=== PATIENT | female | born 1960 | race Caucasian/White ===

== ENCOUNTER 2019-07-10 10:56 | Outpatient (CLI) | payer OTHER, SELFPAY ==
--- NOTE | 2019-07-10 11:04 | XRR_ITS ---
PROCEDURE INFORMATION: Exam: XR Lumbosacral Spine, 2 or 3 Views Exam date and time: 07/10/2019 11:04 AM Age: 59 years old Clinical indication: Lumbago TECHNIQUE: Imaging protocol: XR of the lumbosacral spine, 2 or 3 views. COMPARISON: No relevant prior studies available. FINDINGS: Vertebrae: Normal. No acute fracture. Seen with narrowing of the intervertebral disc space and bone spurs at multiple levels. There is a mild retrolisthesis L2-L3 Soft tissues: Normal. XR/XR lumbar spine 2-3V* [id number] IMPRESSION: Negative for acute bony normality. Mild osteoarthritis Retrolisthesis L2-L3
== END 2019-07-10 10:57 | disposition home or self-care (01) ==
LOC: WPI 10:59
PROVIDERS: Family Provider Internal Medicine; PCP Internal Medicine; Referring Provider Nurse Practitioner Family; Visit Provider Nurse Practitioner Family
DX: M47.896 Other spondylosis, lumbar region (principal); M54.5 Low back pain
CPT/HCPCS: 72100

== ENCOUNTER → 2020-04-09 11:14 | Outpatient (BNVA) | payer OTHER, SELFPAY | PROVIDERS: Family Provider Internal Medicine; PCP Internal Medicine; Visit Provider Internal Medicine | DX: M25.511 Pain in right shoulder (principal); M19.011 Primary osteoarthritis, right shoulder | CPT/HCPCS: 73030 ==

== ENCOUNTER 2020-07-16 11:48 | Outpatient (CLI) | payer OTHER, SELFPAY ==
[2020-07-16 12:01] VITALS: BP 150/87; PULSE 97; RESP 18; O2SAT 98; BMI 42.5
[2020-07-16 12:12] VITALS: TEMP 36.9
--- NOTE | 2020-07-16 12:43 | AMB.MCA ---
Patient Information Symptom onset date: 07/11/20 COVID 19 common symptoms: positive cough, non-productive cough, productive cough, fatigue, body aches and nasal congestion COVID 19 other sytmptoms: negative chest pressure, chest pain, pleuritic pain, requiring oxygen, requiring more oxygen, respiratory distress, cyanosis, lethargy, confusion, new neurological complaints or other concerning symptoms Treatment prior to arrival: none [facility] COVID test results: No Data to Display outside results available, scanned () Criteria/Plan Inclusion/Exclusion Criteria weight >/= 40kg, + direct test </= 10 days ago and symptom onset </= 10 days ago age >/= 55 and has hypertension, age >/= 55 and has diabetes and age >/= 55 and has COPD/lung diease not requiring hospitalization, not requiring oxygen (if not chronically on oxygen) and no increase oxygen requirement (if chronically on oxygen) Patient education patient/caregiver received/reviewed fact sheet, Emergency Use Authorization/unapproved drug status discussed with patient/caregiver, alternatives to this treatment discussed with patient/caregiver, risks and benefits of medication reviewed with patient/caregiver, patient/caregiver given opportunity for questions, which were answered and patient/caregiver consents to receiving Monoclonal Antibody Treatment Plan for treatment Meets criteria for Monoclonal Antibody infusion
[2020-07-16 13:29] VITALS: BP 117/96; PULSE 83; RESP 16; O2SAT 97
[2020-07-16 14:13] VITALS: BP 149/77; PULSE 80; RESP 14; O2SAT 99
[2020-07-16 14:56] VITALS: BP 107/89; PULSE 76; RESP 16; O2SAT 98
[2020-07-16 15:06] VITALS: BP 107/89; PULSE 76; RESP 16
--- NOTE | 2020-07-19 14:27 | DCPLANNER ---
Addendum entered by Aubrie Roa 07/30/20 12:40: research and development manager called to check on patient after getting the BAM infusion. Patient stated that she is doing really good. Glad she got infusion, not been admitted to hospital anywhere. Original Note: research and development manager had message that patient received the BAM infusion. research and development manager called to check on patient after she received the BAM infusion. Patient stated that she is feeling good and that the infusion worked great. Before the infusion she stated that she had a runny nose, lost her sense of taste and smell. She had a headache. After the infusion, she stated that she has a few muscle aches, a runny nose a little, no headache, no fever. She stated that she is tired, but she is feeling good.
== END 2020-07-16 15:06 | disposition home or self-care (01) ==
PROVIDERS: PCP Internal Medicine; Referring Provider Nurse Practitioner Family; Visit Provider Internal Medicine
DX: U07.1 COVID-19 (principal)
CPT/HCPCS: 96365; J7050

== ENCOUNTER → 2021-07-17 09:55 | Day surgery (SDC) | payer BC, OTHER, SELFPAY ==
[2021-07-17 10:36] VITALS: BP 151/89; PULSE 96; RESP 18; TEMP 36.1; O2SAT 99
[2021-07-17] MEDS: ferumoxytol (NON-ESRD) 510 MG in sodium chloride 0.9% (100 ml) 100 ML 351 MG IV (10:42)
== END ==
PROVIDERS: PCP Internal Medicine; Visit Provider Nurse Practitioner
DX: D63.1 Anemia in chronic kidney disease (principal); N18.31 Chronic kidney disease, stage 3a
CPT/HCPCS: 96365; Q0138

== ENCOUNTER → 2021-07-25 10:09 | Day surgery (SDC) | payer BC, SELFPAY ==
[2021-07-25 10:22] VITALS: BP 149/110; PULSE 125; RESP 18; TEMP 36.4; O2SAT 96
[2021-07-25] MEDS: ferumoxytol (NON-ESRD) 510 MG in sodium chloride 0.9% (100 ml) 100 ML 468 MG IV (10:46)
== END ==
PROVIDERS: PCP Internal Medicine; Visit Provider Nurse Practitioner
DX: J84.81 Lymphangioleiomyomatosis (principal)
CPT/HCPCS: 96365; Q0138